=== PATIENT | male | born 1955 | race Caucasian/White ===

== ENCOUNTER 2016-12-31 07:56 | Day surgery (SDC) | payer OTHER ==
[~2016-12-31] VITALS: Ht 180.3 cm; Wt 89.8 kg
[~2016-12-31 07:56] MED LIST: C 250 PO; EQL IBUPROFEN200 MG PO; FLAXSEED OIL1000 MG PO; FOLIC ACID1 MG PO; FOLIC ACID800 MC1 PO; GLUCOSAMINE1000 M1 PO; LYSINE1000 MG PO; MAGNESIUM-OX400 MG PO; MIRALAX3350 NF PO; NORCO1 TA1 PO; PERCOCET 5/325M1 TAB PO; POTASSIUM99 MG PO; TOBRAMYCIN0.3 % OD; VITAMIN B6250 MG PO; VITAMIN D2000 UNI2 PO; [UNRECOGNIZED DRUG - OTHER] PO
[2016-12-31] MEDS ORDERED: LOSARTAN POTASS50 MG PO (08:29)
[2016-12-31 11:02] VITALS: BP 138/71
== END 2016-12-31 10:30 | disposition home or self-care (01) | DRG 951 ==
LOC: ENDO 07:56
PROVIDERS: ATTEND Surgery
PROC: 0DJD8ZZ Inspection of Lower Intestinal Tract, Via Natural or Artificial Opening Endoscopic (ICD-10-PCS; principal; 2016-12-31)
DX: Z12.11 Encounter for screening for malignant neoplasm of colon (principal); I10 Essential (primary) hypertension; K57.30 Diverticulosis of large intestine without perforation or abscess without bleeding; M19.90 Unspecified osteoarthritis, unspecified site